=== PATIENT | female | born 1950 | race Two or more races ===

== ENCOUNTER 2022-11-30 16:06 | Emergency (ER) | payer OTHER ==
[~2022-11-30] VITALS: Ht 157.5 cm; Wt 55.8 kg
[2022-11-30] MEDS ORDERED: ACID REDUCER20 M1 (16:16)
== END 2022-11-30 19:41 | disposition home or self-care (01) ==
LOC: ER 16:06
DX: R30.0 Dysuria (principal); Z88.2 Allergy status to sulfonamides